=== PATIENT | male | born 1985 | race Caucasian/White ===

== ENCOUNTER → 2016-04-15 | Outpatient (CLI) | payer OTHER, MEDICAID ==
--- NOTE | 2016-04-15 14:44 | US ---
Scrotal Ultrasound History: Left-sided lump for years. Reported history of left testicular cyst. Comparison: None available. Findings: Right: The right testicle has homogeneous echotexture with no discrete masses, measuring 3.9 x 3.1 x 2.0 cm. Normal arterial blood flow is present in the testicle. A simple 5 mm epididymal head cyst is noted. There is no hydrocele or varicocele. Left: The left testicle has homogeneous echotexture with no discrete masses, measuring 2.2 x 1.8 x 3. 4 cm. Normal arterial blood flow is present in the testicle. The left epididymis has normal echotext ure. There is no hydrocele or varicocele. Blood flow is symmetric, with no evidence of hyperemia. Impression: Simple 5 mm right epididymal head cyst. Otherwise normal scrotal ultrasound.
== END ==
LOC: BRMIMAGING 13:47
PROVIDERS: ATTEND Physician Assistant
DX: N50.3 Cyst of epididymis (principal)
CPT/HCPCS: 76870-PO

== ENCOUNTER 2018-06-13 21:25 | Emergency (ER) | payer OTHER, MEDICAID ==
--- NOTE | 2018-06-13 21:50 | EDPHY ---
H & P Stated Complaint: HEARING VOICES, PARANOID Time Seen by Provider: 06/13/18 21:45 HPI/ROS: HPI CHIEF COMPLAINT: Paranoid, auditory hallucination HISTORY OF PRESENT ILLNESS: Patient is a 32-year-old male, he has a history of schizophrenia, he was recently released from custodial, presents to the emergency room stating he is having increasing paranoia denies any SI or HI denies visual hallucination but is having auditory hallucinations. States been off his medications for approximately 3 days. He typically takes Zyprexa and is requesting this. Past Medical History: Schizophrenia. Past Surgical History: Denies significant surgical history Social History: Methamphetamine use. Homeless. Polysubstance abuse. Family History: Noncontributory ROS REVIEW OF SYSTEMS: 10 Systems were reviewed and negative with the exception of the elements mentioned in the history of present illness. Exam Constitutional triage nursing summary reviewed, vital signs reviewed, awake/ alert. Eyes normal conjunctivae and sclera, EOMI, PERRLA. HENT normal inspection, atraumatic, moist mucus membranes, no epistaxis, neck supple/ no meningismus, no raccoon eyes. Respiratory clear to auscultation bilaterally, normal breath sounds, no respiratory distress, no wheezing. Cardiovascular rate normal, regular rhythm, no murmur, no edema, distal pulses normal. Gastrointestinal soft, non-tender, no rebound, no guarding, normal bowel sounds, no distension, no pulsatile mass. Genitourinary no CVA tenderness. Musculoskeletal no midline vertebral tenderness, full range of motion, no calf swelling, no tenderness of extremities, no meningismus, good pulses, neurovascularly intact. Skin pink, warm, & dry, no rash, skin atraumatic. Neurologic awake, alert and oriented x 3, AAOx3, moves all 4 extremities equally, motor intact, sensory intact, CN II-XII intact, normal cerebellar, normal vision, normal speech. Psychiatric auditory hallucinations, paranoia. Denies SI or HI. Heme/Lymph/Immune no lymphadenopathy. Differential Diagnosis: Includes but is not limited to in a particular order underlying schizophrenia, off medications, methamphetamine abuse. Medical Decision Making: Plan for this patient 10 mg p. O. Zyprexa, basic blood draw and re-evaluate. Re-evaluation: 0602: Patient re-evaluated this time is resting comfortably. He has no complaints. States he feels much better after tonight arrest he has been in the emergency room for overnight hours sleeping. He received 10 mg of Zyprexa last night and states his paranoia has greatly improved in fact he tells me does not feel paranoid at all. He reports to me no SI or HI denies auditory visual hallucinations. He is not gravely disabled. When I asked the patient what he needs done today he states that he needs to be discharged so that he can go to his psychiatric appointment at 8:00 a.m. This morning to get a refill on all his medications. Given that the patient is not psychotic, denies SI or HI denies want hurt himself and has a follow-up plan and care in place allowed to be discharged from the emergency room. Source: Patient - Personal History Current Tetanus Diphtheria and Acellular Pertussis (TDAP): Yes - Medical/Surgical History Hx Asthma: No Hx Chronic Respiratory Disease: No Hx Diabetes: No Hx Cardiac Disease: No Hx Renal Disease: No Hx Cirrhosis: No Hx Alcoholism: No Hx HIV/AIDS: No Hx Splenectomy or Spleen Trauma: No Other PMH: ADHD, anxiety, kidney stones, SCHIZO, DEPRESSION, ADHD - Social History Smoking Status: Current every day smoker Constitutional: Initial Vital Signs Temperature (C) 36.6 C 06/13/18 21:33 Heart Rate 108 H 06/13/18 21:33 Respiratory Rate 16 06/13/18 21:33 Blood Pressure 136/84 H 06/13/18 21:33 O2 Sat (%) 96 06/13/18 21:33 O2 Delivery Mode Room Air Allergies/Adverse Reactions: erythromycin base Allergy (Verified 09/12/14 23:11) Penicillins Allergy (Verified 09/12/14 23:11) Home Medications: Medication Instructions Recorded Abilify 06/13/18 Celexa 06/13/18 Strattera 06/13/18 Zyprexa 06/13/18 traZODone 06/13/18 Medical Decision Making - Data Points Laboratory Results: Laboratory Results 06/13/18 22:21 06/13/18 22:21 06/13/18 06/13/18 06/13/18 22:21 22:21 22:21 WBC 14.50 10^3/uL H 10^3/uL (3.80-9.50) RBC 4.82 10^6/uL 10^6/uL (4.40-6.38) Hgb 15.4 g/dL g/dL (13.7-17.5) Hct 44.7 % % (40.0-51.0) MCV 92.7 fL fL (81.5-99.8) MCH 32.0 pg pg (27.9-34.1) MCHC 34.5 g/dL g/dL (32.4-36.7) RDW 12.7 % % (11.5-15.2) Plt Count 284 10^3/uL 10^3/uL (150-400) MPV 9.9 fL fL (8.7-11.7) Neut % (Auto) 66.4 % % (39.3-74.2) Lymph % (Auto) 21.7 % % (15.0-45.0) [place] % (Auto) 9.9 % % (4.5-13.0) Eos % (Auto) 1.1 % % (0.6-7.6) Baso % (Auto) 0.6 % % (0.3-1.7) Nucleat RBC Rel Count 0.0 % % (0.0-0.2) Absolute Neuts (auto) 9.63 10^3/uL H 10^3/uL (1.70-6.50) Absolute Lymphs (auto) 3.14 10^3/uL H 10^3/uL (1.00-3.00) Absolute Monos (auto) 1.43 10^3/uL H 10^3/uL (0.30-0.80) Absolute Eos (auto) 0.16 10^3/uL 10^3/uL (0.03-0.40) Absolute Basos (auto) 0.09 10^3/uL 10^3/uL (0.02-0.10) Absolute Nucleated RBC 0.00 10^3/uL 10^3/uL (0-0.01) Immature Gran % 0.3 % % (0.0-1.1) Immature Gran # 0.05 10^3/uL 10^3/uL (0.00-0.10) Sodium 140 mEq/L mEq/L (135-145) Potassium 3.3 mEq/L L mEq/L (3.5-5.2) Chloride 107 mEq/L mEq/L (97-110) Carbon Dioxide 24 mEq/l mEq/l (22-31) Anion Gap 9 mEq/L mEq/L (6-14) BUN 11 mg/dL mg/dL (7-23) Creatinine 0.7 mg/dL mg/dL (0.7-1.3) Estimated GFR > 60 Glucose 102 mg/dL H mg/dL (70-100) Calcium 10.0 mg/dL mg/dL (8.5-10.4) Salicylates < 1.0 mg/dL L mg/dL (2.0-20.0) Urine Opiates Screen NEGATIVE (NEGATIVE) Acetaminophen < 10 mcg/mL L mcg/mL (10-30) Urine Barbiturates NEGATIVE (NEGATIVE) Ur Phencyclidine Scrn NEGATIVE (NEGATIVE) Ur Amphetamine Screen NEGATIVE (NEGATIVE) U Benzodiazepines Scrn NEGATIVE (NEGATIVE) Urine Cocaine Screen NEGATIVE (NEGATIVE) U Marijuana (THC) Screen NON-NEGATIVE H (NEGATIVE) Ethyl Alcohol < 10 mg/dL mg/dL (0-10) Medications Given: Discontinued Medications Olanzapine (Olanzapine) 10 mg PO ONCE ONE Stop: 06/13/18 21:57 Last Admin: 06/13/18 22:10 Dose: 10 mg Departure - Departure Disposition: Home, Routine, Self-Care Clinical Impression: Paranoid delusion Condition: Good Instructions: Schizophrenia (ED) Additional Instructions: 1. return to the er if worsening symptoms, this includes, paranoia, or wanting to hurt your self or anyone else. 2. Follow up with your doctor today 3. return if questions/concerns. Referrals: NONE *PRIMARY CARE P,. [Primary Care Provider] - As per Instructions [facility] [[facility]inic] - As per Instructions
[2018-06-13] MEDS ORDERED: OLANZapine 5 MG TAB PO ONE (21:56)
[2018-06-13 22:31] LABS: PLATELET COUNT 284 10^3/uL (150-400)
[2018-06-14 06:02] VITALS: BP 139/66
== END 2018-06-14 06:05 | disposition home or self-care (01) ==
DX: R44.0 Auditory hallucinations (principal); Z59.0 Homelessness
CPT/HCPCS: 80305; G0480

== ENCOUNTER 2018-06-30 02:56 | Inpatient (IN) | payer OTHER ==
[2018-06-30] MEDS ORDERED: OLANZapine DISINTEGR 5 MG TAB PO ONE (03:20)
--- NOTE | 2018-06-30 03:20 | EDPHY ---
H & P Stated Complaint: paranoid - Personal History Current Tetanus/Diphtheria Vaccine: Yes Current Tetanus Diphtheria and Acellular Pertussis (TDAP): Yes - Medical/Surgical History Hx Asthma: No Hx Chronic Respiratory Disease: No Hx Diabetes: No Hx Cardiac Disease: No Hx Renal Disease: No Hx Cirrhosis: No Hx Alcoholism: No Hx HIV/AIDS: No Hx Splenectomy or Spleen Trauma: No Other PMH: ADHD, anxiety, kidney stones, SCHIZO, DEPRESSION, ADHD, dental surgery - Social History Smoking Status: Current every day smoker Time Seen by Provider: 06/30/18 03:04 HPI/ROS: Chief Complaint: Thinks people are following him HPI: 33-year-old male with a history of schizophrenia is presenting emergency department this morning complaining that people are out to get him inching him. Patient's he has not been compliant with his to Abilify, Strattera, or Zyprexa. He was seen here on the and was discharged with follow up with [facility]. Patient's he did get his prescription filled but the last time he took them he felt sick and vomited so he has not been taking his medications. He believes a poor chasing him. Denies any falls or head injuries. Does any other substances. Being suicidal or homicidal at this time. ROS: 10 systems were reviewed and were negative except those elements noted in the HPI. PMH: Schizophrenia Social History: No smoking, no alcohol, no recreational drug use Family History: non-contributory Physical Exam: Gen: Awake, Alert, disheveled, noticed HEENT: Nose: no rhinorrhea Eyes: PERRLA, EOMI Mouth: Moist mucosa Neck: Supple, no JVD Chest: nontender, lungs clear to auscultation Heart: S1, S2 normal, no murmur Abd: Soft, non-tender, no guarding Back: no CVA tenderness, no midline tenderness Ext: no edema, non-tender Skin: no rash Neuro: CN II-XII intact, Sensation grossly intact, Strength 5/5 in bilateral upper and lower extremities (Fransico Mauricio) Constitutional: Initial Vital Signs Temperature (C) 36.7 C 06/30/18 02:59 Heart Rate 97 06/30/18 02:59 Respiratory Rate 18 06/30/18 02:59 Blood Pressure 145/94 H 06/30/18 02:59 O2 Sat (%) 94 06/30/18 02:59 O2 Delivery Mode Room Air Allergies/Adverse Reactions: erythromycin base Allergy (Verified 06/30/18 03:03) Penicillins Allergy (Verified 06/30/18 03:03) Home Medications: Medication Instructions Recorded Abilify 06/13/18 Celexa 06/13/18 Strattera 06/13/18 Zyprexa 06/13/18 traZODone 06/13/18 Medical Decision Making ED Course/Re-evaluation: 33-year-old male who is paranoid, history schizophrenia. Will treat with Zyprexa. He has been placed on [facility] H hold. He is not suicidal or a danger to others at this time. Will need mental health evaluation morning. He is medically cleared. 0700 patient signed out to Dr. Izquierdo pending mental health evaluation. (Fransico Mauricio) Care was signed out to me at 7:00 a.m.. I saw the patient at 7:10 a.m.. He stable. Sleeping. Awaiting mental health evaluation. Patient has been evaluated and felt most appropriate for inpatient shunt management treatment. He has been accepted at [facility] inpatient psych. (Jose Alfredo Izquierdo) - Data Points Laboratory Results: Laboratory Results 06/30/18 03:20 06/30/18 03:20 06/30/18 06/30/18 06/30/18 03:20 03:20 03:09 WBC 13.57 10^3/uL H 10^3/uL (3.80-9.50) RBC 4.83 10^6/uL 10^6/uL (4.40-6.38) Hgb 15.3 g/dL g/dL (13.7-17.5) Hct 45.2 % % (40.0-51.0) MCV 93.6 fL fL (81.5-99.8) MCH 31.7 pg pg (27.9-34.1) MCHC 33.8 g/dL g/dL (32.4-36.7) RDW 12.7 % % (11.5-15.2) Plt Count 330 10^3/uL 10^3/uL (150-400) MPV 9.6 fL fL (8.7-11.7) Neut % (Auto) 71.2 % % (39.3-74.2) Lymph % (Auto) 15.5 % % (15.0-45.0) [place] % (Auto) 11.0 % % (4.5-13.0) Eos % (Auto) 1.3 % % (0.6-7.6) Baso % (Auto) 0.7 % % (0.3-1.7) Nucleat RBC Rel Count 0.0 % % (0.0-0.2) Absolute Neuts (auto) 9.65 10^3/uL H 10^3/uL (1.70-6.50) Absolute Lymphs (auto) 2.11 10^3/uL 10^3/uL (1.00-3.00) Absolute Monos (auto) 1.49 10^3/uL H 10^3/uL (0.30-0.80) Absolute Eos (auto) 0.18 10^3/uL 10^3/uL (0.03-0.40) Absolute Basos (auto) 0.10 10^3/uL 10^3/uL (0.02-0.10) Absolute Nucleated RBC 0.00 10^3/uL 10^3/uL (0-0.01) Immature Gran % 0.3 % % (0.0-1.1) Immature Gran # 0.04 10^3/uL 10^3/uL (0.00-0.10) Sodium 139 mEq/L mEq/L (135-145) Potassium 4.0 mEq/L mEq/L (3.5-5.2) Chloride 108 mEq/L mEq/L (97-110) Carbon Dioxide 21 mEq/l L mEq/l (22-31) Anion Gap 10 mEq/L mEq/L (6-14) BUN 10 mg/dL mg/dL (7-23) Creatinine 0.7 mg/dL mg/dL (0.7-1.3) Estimated GFR > 60 Glucose 111 mg/dL H mg/dL (70-100) Calcium 10.1 mg/dL mg/dL (8.5-10.4) Urine Opiates Screen NEGATIVE (NEGATIVE) Urine Barbiturates NEGATIVE (NEGATIVE) Ur Phencyclidine Scrn NEGATIVE (NEGATIVE) Ur Amphetamine Screen NEGATIVE (NEGATIVE) U Benzodiazepines Scrn NEGATIVE (NEGATIVE) Urine Cocaine Screen NEGATIVE (NEGATIVE) U Marijuana (THC) Screen NON-NEGATIVE H (NEGATIVE) Ethyl Alcohol < 10 mg/dL mg/dL (0-10) Medications Given: Discontinued Medications Olanzapine (Zyprexa Zydis) 5 mg PO EDNOW ONE Stop: 06/30/18 03:21 Last Admin: 06/30/18 03:27 Dose: 5 mg Departure - Departure Disposition: [facility] IP Clinical Impression: Suicidal ideation Condition: Fair Referrals: Dario Hartmann MD [Primary Care Provider] - As per Instructions
[2018-06-30 03:29] LABS: PLATELET COUNT 330 10^3/uL (150-400)
--- NOTE | 2018-06-30 11:36 | ASMTTCLDSP ---
TLC Discharge Disposition Disposition: Answers: Admit Disposition Notes: Notes: Schizophrenia 295.90 (F20) In consultation with [facility] ED physician, Rudy Ace MD and on-call records management director, LEE Tom both concurred that pt appears to meet 27-65 criteria requiring psychiatric hospitalization as pt appears to be at risk of harm to self due to a mental illness condition. Pt was read the Patient Rights and Responsibilities Statement on 06/29/18 at 11:30 original placed on chart, and was given photocopy of Rights. Pt signed the Patient Rights. prohibited belongings list while in the ED. Was patient given the Answers: Yes Inpatient Behavioral Health Prohibited Belongings List while in the ED? For inpatient LEE Tom admission, the following psychiatrist agreed to accept patient for admission to Behavioral Health ([facility]): Type of Hold: Answers: M1/72-hour Hold Hold initiated by: Answers: Psychiatrist Date Signed: 06/30/2018 11:35 AM Electronically Signed By:Aaron Campos
--- NOTE | 2018-06-30 11:37 | ASMTTLCEVL ---
TLC Evaluation - Basic Information Evaluation Start Date and 06/30/2018 08:00 AM Time Hospital Status Answers: M1 Hold 72-hr M1 Hold Start Date 06/30/2018 11:25 AM and Time Patient statement Notes: "People have been trying to attack me on the street, this people on skateboards were following me and I ended up coming here" Narrative Notes: PT is a 33 YO caucasiaon male, homeless, with a history of schizophrenia is presenting emergency voluntarily complaining that people are out to get him and following him. "Per ED report the Patient's has not been compliant with his to Abilify, Strattera, or Zyprexa. He was seen here on the June 14 and was discharged with follow up with [facility]. Patient's he did get his prescription filled but the last time he took them he felt sick and vomited so he has not been taking his medications. He believes people are chasing him. U-Tox positive for THC only. " Diagnosis History Notes: Schizophrenia 295.90 (F20) Prior suicide attempts Notes: Pt reportes 6 sucide attempts via hanging, pills/OD and placing a bag over his head. Prior hospitalizations Notes: Pt reports he was hospitalized at [facility] at 22yo and at [facility] 3-4 years ago Treatment Responses Notes: Pt reported hospitalization was kind of helpful. History of violence Notes: PT deneis any hx of violence but does report he has bene charged with manacing. Therapist: None Psychiatrist: Dr. Harmtann at [facility] Medications (name, dosage, route, freq uency) Notes: PER [facility] THE PT's Home Medications Are: Medication Instructions Recorded Abilify 15mg PO AM 06/30/18 Effexor XR 75 MG CP 24 PO AM 06/30/18 Effexor XT 150 MG CP 24 PO AM 06/30/18 Strattera 100mg cap PO 1 HS 06/30/18 Trazadone 50mg tab PO 1 PRN-HS 06/30/18 Allergies/Reaction Notes: Allergies/Adverse Reactions: erythromycin base Allergy (Verified 06/30/18 03:03) Penicillins Allergy (Verified 06/30/18 03:03) Sleep Notes: Pt reports his sleep is poor Appetite Notes: Pt reports his apptetite is poor Medical/Surgical history Notes: No medical concerns or previous surgical hx reported Substance use history (frequency, intensity, his tory, duration) Notes: PT's utox was positive for THC. Pt reported he started THC at 12yo. PT reproted he first used meth at 22 or 23 years old. Family composition Notes: Pt reports he has a sister he is not close to, his father is , and his mother lives in [place]. PT is estranged from family Need for family Answers: Yes participation in patient's care Family psychiatric/substance abuse history Notes: Pt reporte dhis father was an alcoholic and , pt reported his mother has schizophrenia. Developmental history Notes: Pt reported ADHD, a concussion at 9YO, pt denied any emotional physical or sexual abuse. Abuse concerns Answers: None Marital status/children Notes: Unmarried 2 children 7 and 8 YO estranged, living with mother [place] out of state Living situation Notes: Homeless Sexual history/orientation Notes: Heterosexual not active Peer support/family strengths Notes: Pt reportes he doest have friends or support Education level/history Notes: PT reports he has a GED Work history Notes: PT reports he doesn't work and is on SSDI Notes: None Reported Legal Notes: "I'm on pretrial protocols out on a [place]" Per [facility] records pt has been in and out of [facility] 01/26/2014 06/24/14 and was recently released from [facility] shortly before May Nondenominational/Spiritual Notes: PT does not identify any adventism practices that would interfere with treatment Leisure Notes: "I don't know, smoke pot?" Collateral Notes: Collateral data obtained from previous ED report and [facility] for meds and providers Patient's strengths Answers: Motivated for Treatment (Please select at least TWO strengths): Willingness TLC Evaluation - Mental Status Exam Appearance: Answers: Appropriate Unclean Unkempt Eye Contact: Answers: Avoiding Mood: Answers: Depressed Affect: Answers: Appropriate Calm Expansive Suspicious Behavior: Answers: Cooperative Impulsive Sleeping Speech: Answers: Relevant Logical Clear Coherent Flight of Ideas Rambling Thought Process: Answers: Disorganized Oriented Alert Circumstantial Flight of Ideas Paranoid Racing Thoughts Insight: Answers: Poor Judgement: Answers: Poor Manic Signs/Symptoms Answers: Distractibility Impulsivity Racing Thoughts Depression Answers: Hopelessness Signs/Symptoms: Anxiety Signs/Symptoms Answers: Generalized Anxiety Delusions: Answers: Ideas of Reference Paranoid Ideation Current Stage of Change Answers: Precontemplation Pt reported to have Answers: Yes suicidal/self-injuring ideation/behavior? Pt reported to be making Answers: No suicidal/self-injuring threats? Pt reported to have Answers: No aggression/assault ideation/behavior? Pt reported to be making Answers: No aggression/assault threats? Pt exhibits inability to Answers: Yes care for self/grave disability? Ideation/behavior is Answers: Yes chronic? Patient has a specific Answers: No plan? Pt has access to means to Answers: No execute the plan? Ideation involves Answers: No serious/lethal intent? Ideation has Answers: Yes delusional/hallucinatory content? History of Answers: Yes suicidal/self-injuring ideation, behavior, or threats? History of Answers: Yes aggressive/assaultive ideation, behavior, or threats? History of serious Answers: No physical harm to self/others while in treatment setting? TLC Evaluation - Suicide/Homicide Risk Suicide Risk Factors: Answers: Financial Difficulties Flat Affect Hopelessness Impulsivity Inadequate Social Support Lack of Social Support Lack/Loss of Employment Legal Difficulties Prior Suicide Attempt(s) Psychotic Disorder Schizoaffective Disorder Schizophrenia Single Unstable Living Situation Homicide/violence risk Answers: Paranoid Ideation factors: Threats Towards Others Current Suicidal Answers: No Ideation? Current Suicidal Ideation Answers: No in the Past 48 Hours? Current Suicidal Ideation Answers: Yes in the Past Month? Suicide Internal Answers: Frustration Tolerance Protective Factors: Alexander with Stress Suicide External Answers: Positive Therapeutic Protective Factors: Relationships Ranking of patient's Answers: Moderate suicidal risk: Ranking of patient's Answers: Low homicidal risk: TLC Evaluation - Wrap-up AXIS I Diagnosis (include DSM-V and ICD-10 codes), must also be entered in [employer], which is the source of truth. Notes: Schizophrenia 295.90 (F20) In consultation with [facility] ED physician, Rudy Ace MD and on-call enchilada maker, LEE Tom both concurred that pt appears to meet 27-65 criteria requiring psychiatric hospitalization as pt appears to be at risk of harm to self due to a mental illness condition. Pt was read the Patient Rights and Responsibilities Statement on 06/29/18 at 11:30 original placed on chart, and was given photocopy of Rights. Pt signed the Patient Rights. prohibited belongings list while in the ED. Evaluation End Date and 06/30/2018 11:00 AM Time (HH:MM): Date Signed: 06/30/2018 11:36 AM Electronically Signed By:Aaron Campos
--- NOTE | 2018-06-30 12:26 | PDCONSULT ---
[facility] Note: INTERNAL MEDICINE CONSULT NOTE DATE OF CONSULTATION: 06/30/2018 REASON FOR CONSULTATION: medical clearance for inpatient behavioral health stay HISTORY OF PRESENT ILLNESS: Mr Craig is a 33yo M with history of schizophrenia presents with hallucinations. He has not followed up with his mental health provider or been taking his psychiatric medications for at least a few weeks. He reports that people are chasing him. He denies suicidal or homicidal ideation. His left jaw has been swollen and painful. He had some dental work done (a crown placed?) on left lower tooth about 1.5 weeks ago but hasn't been able to follow up with his dentist. No recent fevers, chills, chest pain, dyspnea, abdominal pain, n/v/d, rashes. PAST MEDICAL HISTORY: schizophrenia, nephrolithiasis, anxiety, ADHD PAST SURGICAL HISTORY: wisdom tooth removal MEDICATIONS: see medication reconciliation ALLERGIES: penicillin (unknown allergy) SOCIAL HISTORY: denies etoh, vapes tobacco, smokes marijuana but denies other illicits FAMILY HISTORY: non-contributory REVIEW OF SYSTEMS: 10 point review was negative except per HPI. VITALS: Reviewed. Afebrile. He is mildly tachycardic and hypertensive with HR in the 90s and BP 140/90s. PHYSICAL EXAM: No acute distress, unkempt. Appears stated age. Anicteric sclera , eomi, perrl. No thyromegaly. Mild erythema of gingiva surrounding tooth in left lower jaw; fullness in left cervical neck consistent with adenopathy. RRR, no murmurs. Lungs clear bilaterally. Abdomen soft and nontender. No rashes. No leg edema or JVD. CN 2-12 intact, moving all extremities. Appropriate. LABORATORY STUDIES: Reviewed. WBC 13k otherwise normal CBC. Normal BMP. Utox + for marijuana but otherwise negative. Serum ethyl alcohol negative. ASSESSMENT/PLAN: 1. Decompensated schizophrenia: Management per inpatient psychiatric team. 2. Concern for mild odontogenic infection: Will start on clindamycin 450mg q8h x10 days (he has penicillin allergy so will avoid augmentin). He will need to follow up with his dentist shortly after completing course of antibiotics. 3. Leukocytosis: Likely related to above infection. He is otherwise not septic or toxic appearing. 4. History of nephrolithiasis: No symptoms of this currently. 5. Tobacco use I see no medical contraindications for Mr Dewitt's continued stay in the inpatient behavioral health unit. Thank you for this consult. Please do not hesitate to contact the internal medicine/hospitalist team if there should be further need for medical evaluation.
[2018-06-30] MEDS ORDERED: CLINDAMYCIN 150 MG CAP ONE (14:01)
[2018-06-30] MEDS: CLINDAMYCIN 150 MG CAP PO SCH ×2 (14:03→21:20)
[2018-06-30] MEDS ORDERED: MAGNESIUM HYDROXIDE 30 ML UDCUP PO PRN (16:07)
[2018-06-30] MEDS ORDERED: NICOTINE POLACRILEX 2 MG GUM B PRN (16:07)
[2018-06-30] MEDS ORDERED: ACETAMINOPHEN 325 MG TAB PO PRN (16:07)
[2018-06-30] MEDS ORDERED: OLANZapine DISINTEGR 10 MG TAB PO PRN (16:07)
[2018-06-30] MEDS ORDERED: LORazepam 0.5 MG TAB PO PRN (16:07)
[2018-06-30] MEDS ORDERED: MAG HYDROX/AL HYDROX/SIMETH 30 ML UDCUP PO PRN (16:07)
[2018-06-30] MEDS: IBUPROFEN 200 MG TAB PO PRN (17:23)
[2018-07-01] MEDS: IBUPROFEN 200 MG TAB PO PRN (08:37)
[2018-07-01] MEDS: CLINDAMYCIN 150 MG CAP PO SCH ×3 (08:38→20:20)
[2018-07-01] MEDS ORDERED: PALIPERIDONE 3 MG TAB.ER PO SCH (09:00)
--- NOTE | 2018-07-01 09:27 | ASMTBHMTP ---
Master Treatment Plan Master Treatment Plan Answers: Mood Instability with for: Psychosis Date: 07/01/2018 Diagnosis on Admission: Schizophrenia 295.90 (F20) Expected length of stay: 5-7 Reason for admission: Notes: PT is a 33 YO caucasiaon male, homeless, with a history of schizophrenia is presenting emergency voluntarily complaining that people are out to get him and following him. "Per ED report the Patient's has not been compliant with his to Abilify, Strattera, or Zyprexa. He was seen here on the June 14 and was discharged [facility]. Patient's he did get his prescription filled but the last time he took them he felt sick and vomited so he has not been taking his medications. He believes people are chasing him. U-Tox positive for THC only. " Patient's stated presenting problems: Notes: "People are following me talking about me, trying to jennifer me even in the parking lot of the hospital. Even the manager game are following me. Patient's goals for treatment: Notes: "My tooth. I like to get my regular medications instead of the medications the doctor wants to give me". Patient's strengths: Notes: "I don't know". Identify supports outside of hospital: Notes: "I have no support. My mom put a restraining order against me because I was smoking Meth". Discharge criteria: Notes: Participate in unit activities. Maintain good hygiene. Master Treatment Plan Required Signatures Psychiatrist signature: Answers: Psychiatrist: RN on-shift signature: Answers: RN: Patient signature: Answers: Patient: Date Signed: 07/01/2018 09:26 AM Electronically Signed By:Priscilla Perez
--- NOTE | 2018-07-01 11:58 | ASMTCMCOM ---
CM Note CM Note Notes: CC met with ct. to develop MTP. Ct. presented as paranoid and agitated. Hygiene is marginal Ct. is isolative and stays in his room. He said that he has a tooth ache and is in pain. He reported that he is being seen at [facility] and that his MD is Dr. Hartmann. However, he refused to sign a JOSE for [facility] saying that they are following him. Date Signed: 07/01/2018 11:57 AM Electronically Signed By:Priscilla Perez
[2018-07-01] MEDS: HYDROCODONE/APAP 5/325 TAB PO PRN ×2 (12:30→16:35)
[2018-07-01] MEDS: VENLAFAXINE XR 150 MG CAP PO SCH (12:30)
--- NOTE | 2018-07-01 15:22 | SOAPPROG ---
SOAP Progress Note Assessment/Plan: Assessment: Plan: 07/01/18 15:21 Psychosis/mood: Appears paranoid, irritable, hostile. Will restart meds and monitor. Will attempt to complete full evaluation tomorrow. Subjective: Pt seen twice today, chart reviewed. He was seen earlier by Shane Sue NP also. He refuses to provide interview stating he is tired and his tooth hurts. I agreed to restart some of his meds including: Effexor and Zyprexa. Will hold Strattera and Abilify for now due to concern for redundancy and/or conflict. Will continue abx per IM rec. Will add hydrocodone for pain. Objective: Vital Signs Temp Pulse Resp BP Pulse Ox 37.3 C 108 H 24 H 138/77 H 93 07/01/18 06:00 07/01/18 06:00 07/01/18 06:00 07/01/18 06:00 07/01/18 06:00 - Time Spent With Patient Time Spent With Patient: 25" ICD10 Worksheet Patient Problems: Problems Problem Status Onset Suicidal ideation Acute
[2018-07-01] MEDS: PNEUMOCOCCAL 0.5ML VACCINE VIAL (PNEUMOVAX 23) IM ONE ×2 (16:40→16:50)
[2018-07-01] MEDS: OLANZapine DISINTEGR 10 MG TAB PO SCH (20:21)
[2018-07-02] MEDS: HYDROCODONE/APAP 5/325 TAB PO PRN ×4 (08:46→20:47)
[2018-07-02] MEDS: VENLAFAXINE XR 150 MG CAP PO SCH (08:47)
[2018-07-02] MEDS: CLINDAMYCIN 150 MG CAP PO SCH ×3 (08:48→20:46)
--- NOTE | 2018-07-02 12:54 | ASMTCMCOM ---
CM Note CM Note Notes: The patient reported a "tooth infection" causing "excrutiating" pain; nursing notified. He continues to refuse to sign documents or participate in treatment due to paranoid ideation. With regard to an JOSE for his outpatient team at [facility], the patient stated, "They have people follow me." The patient denied having peer support reporting that he had disconnected with many friends due to their substance abuse. With regard to his support system the patient stated, "Their all gone. I don't know where." Date Signed: 07/02/2018 12:54 PM Electronically Signed By:Maria M Ashby
--- NOTE | 2018-07-02 16:17 | BAPA ---
[f rep st] ADMISSION PSYCHIATRIC ASSESSMENT DATE OF SERVICE: 07/01/2018 DATES OF EVALUATION: 07/01/2018 and 07/02/2018. REASON FOR ADMISSION: Patient is a 33-year-old male with a history of depression and possibly schizophrenia. He presented of his own accord to the emergency department reporting suicidality stating that people were out to get him. He stated that he had been on medications but had been off them because he sick and vomited. He is followed by [facility] and states that he saw Dr. Hartmann about 2 weeks ago. He then also presented to our emergency department on June 14 and stated that he was paranoid also at that time. I attempted to interview the patient on 07/01/2018, and saw him 3 times on that day. Each time he was irritable, hostile, paranoid, and refused interview. He was mainly concerned about a tooth abscess that was very painful, and he stated that this caused him not to be able to talk with me. When I returned today, the patient was much more cooperative. He still complained of a tooth abscess, which is legitimate, though he was able to give some history. He states that people have been following him in [place], and then [place], and now in [place]. When I ask who these people are, he states that he knows them but does not know who they are. He states that the police are part of it as well. He states that he is unsafe and does not know why others intend him harm. He states this has been going on for quite a long time and that this has caused him to move around a lot. He is homeless and states he has no supports of any kind. Collateral information indicates that he grew up in the [facility] and his mother still lives there but has a restraining order against him. He states that he has no supports of any kind and his family is . He reports having 6 previous suicide attempts, mainly through overdose or hanging, and states he placed a bag over his head on one occasion. He states also that he has been hospitalized numerous times including at [facility] and [facility], though he is unable to give a specific timeline. He currently is followed by [facility] and Dr. Hartmann. PAST PSYCHIATRIC HISTORY: Largely as above. ALLERGIES: Erythromycin and penicillin. CURRENT MEDICATIONS: Include Abilify 10 mg at h.s., Strattera 100 mg daily, ibuprofen 200 mg daily, multivitamin 1 daily, Zyprexa 10 mg h.s., and Effexor XR 150 mg daily. It is of note that there are 4 different lists of medications that are similar but different. The patient states that he was not taking Abilify recently but that he was taking Zyprexa and Strattera. He also states that he would like to take the Effexor as he believes this has helped him in the past. PAST MEDICAL HISTORY: Significant for this history of some dental problems recently. He states that he got a filling 2 weeks ago and that he had this swelling in his tooth at the time. He states that they told him them that if it did not get better that he might have to have it pulled. He states that this is much worse over the last 3-4 days. He denies any other medical issues. SOCIAL HISTORY: Patient states he was born and raised in the [facility]. He currently receives social security disability income for mental illness. He has a payee at [employer]. He reports having no supports and no available family. He states that his father was an alcoholic and when he was young. He states his mother has been diagnosed with schizophrenia. He is unmarried, though he states he has 2 children, ages 7 and 8, that he has no contact with, and the mother apparently moved them out of state. He describes significant legal problems in the past, stating that he has been in retirement and group home, though is not specific about why or when, and he is currently out on a [place] martinez due to possession of methamphetamine. SUBSTANCE ABUSE HISTORY: The patient states that he primarily smokes marijuana and is guarded about his possible methamphetamine use. ADMISSION LABORATORY: CBC shows a white count up at 13.57. Serum chemistries are essentially normal. Liver function is normal. Lipid profile is normal. Urine drug screen is positive for marijuana. MENTAL STATUS EXAMINATION: Reveals an unkempt male lying in a hospital bed wearing hospital garb. He is holding a cold pack to his cheek, which is notably swollen. He is quite hostile and guarded, paranoid, but today is at least willing to participate in an interview. His affect is constricted, irritable. His mood is "terrible." His thought process is generally linear and goal directed. His thought content reveals a general sense of paranoia, believing that others are following him and there is a plot against him. He denies any auditory, visual, or tactile hallucinations. He is alert and oriented to person, place, time, and situation, and his sensorium is clear. There is no evidence of delirium, withdrawal, or intoxication. His intellect appears to be average to low average as evidenced by his educational and occupational histories, his fund of knowledge and vocabulary. He endorses some thoughts of suicide and also homicide toward unseen persons who are persecuting him. He has no specific plans for this. His insight and judgment appear to be marginal. IMPRESSION: Schizophrenia versus schizoaffective disorder, depressed type. PLAN: 1. [facility]. 2. We will restart Zyprexa, Effexor, and provide p.r.n. lorazepam. We will also continue clindamycin for his abscess and ibuprofen and hydrocodone for pain. 3. We will monitor his mood and psychotic symptoms with reinstitution of treatment. 4. Anticipated length of stay is 5-7 days. /[id number]/MODL and [id number]/MODL [facility]
[2018-07-02] MEDS: IBUPROFEN 200 MG TAB PO PRN (16:58)
--- NOTE | 2018-07-02 17:47 | BAPA ---
[f rep st] ADMISSION PSYCHIATRIC ASSESSMENT CONTINUATION: PLAN: 1. [facility] hold. 2. We will restart Zyprexa, Effexor, and provide p.r.n. lorazepam. We will also continue clindamycin for his abscess and ibuprofen and hydrocodone for pain. 3. We will monitor his mood and psychotic symptoms with reinstitution of treatment. 4. Anticipated length of stay is 5-7 days. c/p [facility] #[id number] /[id number]/MODL
[2018-07-02] MEDS: OLANZapine DISINTEGR 10 MG TAB PO SCH (20:48)
[2018-07-03] MEDS: VENLAFAXINE XR 150 MG CAP PO SCH (08:26)
[2018-07-03] MEDS: HYDROCODONE/APAP 5/325 TAB PO PRN ×2 (08:26→15:53)
[2018-07-03] MEDS: CLINDAMYCIN 150 MG CAP PO SCH ×3 (08:26→19:19)
[2018-07-03] MEDS: IBUPROFEN 200 MG TAB PO PRN ×3 (08:26→19:19)
--- NOTE | 2018-07-03 17:40 | SOAPPROG ---
SOAP Progress Note Assessment/Plan: Assessment: 33 yo with h/o schizophrenia presented to ED on 07/01/18 c/o people chasing him and other paranoid delusions. He has not taken meds for a couple weeks b/c he believes his med are making him sick. Plan: 07/03/18 17:[address] Redmond saw patient on admission and restarted him on Zyprexa and Effexor , but held 2 other OP meds, Abilify and Strattera d/t concerns for polypharmacy and potential for Strattera to worsen sxs of psychosis. 2. Patient's main concern is tooth abcess. He is taking Clindamycin as well as [place] for pain. 3. CC has scheduled f/u appt with Dr. Hartmann and providers at [facility] on 07/15. 4. Will change legal status to voluntary when hold expires. Subjective: Patient has stayed in his room all day. He is complaining of tooth pain from abcess. He is taking PO Clindamycin as well as narcotic for pain. He is denying any SI/HI. He is less delusional and paranoid than at admission. However, patient is homeless and has not been compliant with treatment prior to coming to hospital. CC is trying to connect him with [facility] providers. Patient agreed to stay voluntarily through weekend, so treatment team could contact his [facility] providers and establish a f/u plan. Objective: Vital Signs Temp Pulse Resp BP Pulse Ox 36.8 C 117 H 20 129/81 H 94 07/03/18 06:00 07/03/18 06:00 07/03/18 06:00 07/03/18 06:00 07/03/18 06:00 MSE: Affect: Anxious d/t tooth pain Mood: "OK" TP: Linear TC: Denies SI/HI, less paranoid Insight/Judgment: Improving - Time Spent With Patient Time Spent With Patient: 15" - Pending Discharge Pending Discharge Within 24 Hours: No Pending Discharge Within 48 Hours: No ICD10 Worksheet Patient Problems: Problems Problem Status Onset Suicidal ideation Acute
[2018-07-03] MEDS: OLANZapine DISINTEGR 10 MG TAB PO SCH (19:18)
[2018-07-04] MEDS: CLINDAMYCIN 150 MG CAP PO SCH ×3 (08:19→21:25)
[2018-07-04] MEDS: HYDROCODONE/APAP 5/325 TAB PO PRN ×4 (08:20→21:27)
[2018-07-04] MEDS: IBUPROFEN 200 MG TAB PO PRN ×3 (08:20→19:57)
[2018-07-04] MEDS: VENLAFAXINE XR 150 MG CAP PO SCH (08:20)
--- NOTE | 2018-07-04 14:18 | ASMTCMCOM ---
CM Note CM Note Notes: CC and MD met with pt. Pt. reports he will discharge on Thursday. Pt. stated he is connected with [facility]. Pt. reports his dentist is [facility] in [place]. Pt. reports he slept "good". Pt. reports "not really" eating due to tooth pain, adding it is "hard to swallow". Pt. reports taking all of his medications, other than one he doesn't know what it's for. Pt. reports he has been resting in his room most of the day. Pt. reports being homeless, and not entirely sure where he plans to stay. Pt. reports not really wanting to stay in [place], adding he does get paid through [facility] though. Pt. requested to be able to shave, adding this will make him happy. Pt. denied SI, HI, and AVH. Pt. reports having "paranoia on the street" about being followed, adding not having paranoia while in the hospital. Pt. presents as alert, calm, good eye contact, polite, and cooperative. Staff report pt. sleeping 10 hours, being medication compliant, and withdrawn to his room. Pt. agreed to sign JOSE for [facility] to allow CC to schedule an appointment for his tooth abscess Pt. has an appointment with [facility] on 07/15/18 at 1400. Date Signed: 07/04/2018 02:18 PM Electronically Signed By:Suzan Ray
--- NOTE | 2018-07-04 17:06 | SOAPPROG ---
SOAP Progress Note Assessment/Plan: Assessment: 33 yo with h/o schizophrenia presented to ED on 07/01/18 c/o people chasing him and other paranoid delusions. He has not taken meds for a couple weeks b/c he believes his med are making him sick. Plan: 07/03/18 17:[address] Redmond saw patient on admission and restarted him on Zyprexa and Effexor , but held 2 other OP meds, Abilify and Strattera d/t concerns for polypharmacy and potential for Strattera to worsen sxs of psychosis. 2. Patient's main concern is tooth abcess. He is taking Clindamycin as well as [place] for pain. 3. has scheduled f/u appt with Dr. Hartmann and providers at [facility] on 07/15. 4. Will change legal status to voluntary when hold expires. 07/04/18 17:02 1. Patient reports tooth pain is "better." 2. Patient reportedly slept 10 hrs last night without any disturbance from his tooth pain. 3. Patient said he plans to go to [facility] after d/c to f/u for tooth abscess. 4. Patient has registration appt at [facility] on 07/13. CC will try to schedule an earlier appt if possible. 5. Patient would like to d/c tomorrow. Subjective: MD and CC met with patient. He was sitting on his bed wearing jeans and a T- shirt. Patient reported tooth pain, but did not present in any acute distress. He said he had been to [facility] clinic this week. They placed a filling in his tooth that has now developed an abscess. He said he plans to return there as soon as he is discharged. He denies any paranoid delusions. He denies any SI/ HI. Objective: Vital Signs Temp Pulse Resp BP Pulse Ox 36.7 C 96 20 132/67 H 93 07/04/18 06:00 07/04/18 06:00 07/04/18 06:00 07/04/18 06:00 07/04/18 06:00 MSE: Affect: Euthymic Mood: "OK" TP: Linear, goal-directed TC: Denies any SI/ HI, no paranoid delusions, no bizarre thoughts or IOR Perception: Denies any AH /VH Insight/Judgment: Fair - Time Spent With Patient Time Spent With Patient: 20" - Pending Discharge Pending Discharge Within 24 Hours: Yes Pending Discharge Date: 07/05/18 Pending Discharge Time: 11:00 ICD10 Worksheet Patient Problems: Problems Problem Status Onset Suicidal ideation Acute
[2018-07-04] MEDS: OLANZapine DISINTEGR 10 MG TAB PO SCH (19:57)
[2018-07-05 06:44] VITALS: BP 121/76
[2018-07-05] MEDS: CLINDAMYCIN 150 MG CAP PO SCH (07:44)
[2018-07-05] MEDS: VENLAFAXINE XR 150 MG CAP PO SCH (07:44)
[2018-07-05] MEDS: HYDROCODONE/APAP 5/325 TAB PO PRN (07:49)
--- NOTE | 2018-07-05 10:33 | BDS ---
[f rep st] BEHAVIORAL HEALTH DISCHARGE SUMMARY REASON FOR ADMISSION: From the ED note dated 06/30/2018, the patient with history of schizophrenia, presented to the emergency department complaining that people were out to get him. Reportedly, patient had not been adherent to prescribed medications. The patient was admitted involuntarily and on an M1 hold due to being gravely disabled due to a mental illness. Patient was admitted for safety, crisis stabilization, and medication management. ADMITTING DIAGNOSES: 1. Rule out schizophrenia. 2. Rule out schizoaffective disorder, depressed type. 3. Cannabis use disorder, moderate use. 4. Nonadherence to medical treatment. ADMISSION PHYSICAL EXAM: Patient was seen on 06/30/2018 for history and physical consultation for medical clearance for inpatient psychiatric hospitalization and treatment. The patient was medically cleared for inpatient psychiatric hospitalization and treatment. For further details, please refer to economics consultant note document dated 06/30/2018. ADMISSION LABS: 1. CBC within normal limits except white blood cells were elevated at 13.57, absolute neutrophils were elevated at 9.65, and absolute monocytes were elevated at 1.492. 2. BMP within normal limits except carbon dioxide was low at 21, glucose was elevated at 111. 3. Hemoglobin A1c within normal limits at 5.4. 4. Liver function within normal limits. 5. Lipid panel within normal limits except LDL cholesterol calculated was elevated at 126, non-HDL cholesterol was elevated at 144. 6. Toxicology screen was non-negative for THC, negative for all other substances screened. MAJOR PROCEDURES OR TESTS: None. HOSPITAL COURSE: The most prominent symptoms and behaviors while the patient was here were isolated from social interaction. At time of admission, patient was withdrawn to his room, avoided social interaction with other patients and staff. The patient's affect was constricted and flat. Patient presented depressed. The patient also reported paranoid delusions. Treatment modalities utilized were milieu and group therapy. Zyprexa Zydis 10 mg p.o. at bedtime was started to target mood and psychosis symptoms, was tolerated with no report of side effects and with good response. Effexor XR 150 mg p.o. daily was continued to target mood symptoms, was tolerated with no report of side effects and with good response. The patient also complained of tooth discomfort due to abscess, and Jackson 5/325 one tab p.o. q.4 hours p.r.n. was started to target pain, was tolerated with no report of side effects and with good response. Clindamycin 450 mg p.o. t.i.d. was started to target tooth infection related to tooth abscess, was tolerated with no report of side effects and with good response. The patient slept 10 hours last night and also slept on Thursday night without disturbance due to tooth pain and reported tooth pain as better. The patient plans to follow up at [facility] after discharge to follow up for tooth abscess. Patient has improved considerably with no signs of psychiatric symptoms and no psychiatric symptoms expressed. Patient reports he has improved since admission, states to be in stable condition, feels safe to discharge, and he contracts for safety. Patients response to treatment was good. There were no adverse or unexpected results of treatment. The patient was safe throughout stay, active in treatment, engaged in groups, and was appropriate with staff. Patient met with treatment team prior to discharge to assess readiness to discharge and review discharge plan. The treatment team consensus is the patient in stable condition, has a safe discharge plan, and is ready to discharge today. CONDITION AT DISCHARGE: Patient is in stable condition and is no longer a danger to self or others, and is not gravely disabled due to mental illness. Patient is no longer in need of inpatient level of care, and can be safely and effectively treated within the community. The patients level of risk at time of discharge is low. MSE: The patient is casually dressed and with good hygiene , and looks stated age. Patient is sitting, posture is upright, and position is relaxed. Patient appears awake, alert, and responds appropriately and reasonably during interview. Patient is engaged, relates well to interviewer, and emotional facial expression is appropriate to situation and changes appropriately with topic. Patient is cooperative, makes comfortable eye contact , and movements are voluntary, deliberate, coordinated, and smooth and even with no inappropriate movements. Patient makes laryngeal sounds effortlessly and shares conversation appropriately; pace of conversation is appropriate, and stream of talking is fluent; articulation is clear and understandable; word choice is effortless and appropriate for education level; completes sentences, occasionally pausing to think; rate and volume are appropriate for interview and setting. Patient reports mood as euthymic. Patients affect is stable with full variable range, congruent with mood, and appropriate to speech and circumstances. Patient has linear and logical thinking, with no loose associations, tangential thought, thought blocking, concrete thinking, or any other signs of formal thought disorder. Patient denies suicidal and homicidal ideation, and denies hallucinations and delusions. Patient appears to be a reliable historian with sound judgement and good insight into current condition. Patient has no apparent dysfunction in recent or remote memory noted , and no evidence of gross cognitive dysfunction noted at any point during the interview. DISCHARGE DIAGNOSES: 1. Schizoaffective disorder, depressive type. 2. Cannabis use disorder, moderate use. CURRENT MEDICATIONS: After reviewing options, risks, and benefits with the patient, patient agrees to continue: 1. Zyprexa 10 mg p.o. q.h.s. 2. Effexor XR 150 mg p.o. daily. DISPOSITION: Patient left the hospital independently and voluntarily and plans to stay in hotel after discharge. Patient plans to first attend dentist appointment today at 2pm in [place], [place]. FOLLOWUP: dispute coordinator reports the appropriate outpatient follow-up services have been established and outpatient appointments have been scheduled. The patient received written instructions with times and dates of outpatient follow-up appointments. The following follow-up recommendations were provided to the patient at discharge: Continue psychotropic medications as prescribed and attend appointments as scheduled. Report any side effects to a psychiatric outpatient provider, a primary care provider, or other health animal daycare provider. Address any questions or problems concerning the psychotropic medications with a psychiatric outpatient provider, a primary care provider, or other health animal daycare provider. Contact [facility] or [facility], or go to the nearest emergency room, if you are ever a danger to yourself/others, or unable to care for yourself. As soon as possible, establish a routine medication management treatment with a psychiatric provider, establish routine therapy appointments, and follow-up with a primary care provider. SUBSTANCE ABUSE BRIEF INTERVENTION: Brief intervention regarding the risks of cannabis abuse is provided to patient with goal to reduce the risk of harm that could result from the continued use of cannabis, with the general aim to investigate the problem, raise awareness of problem, develop a solution with the patient, recommend a specific change or activity, and motivate the patient toward change. Assess substance abuse behavior and give supportive advice about harm reduction, recommend a reduction in hazardous/at-risk consumption patterns, and facilitate referrals for additional specialized treatment with critical care technician. Intermediate goal is for the patient to quit and attend outpatient substance abuse treatment. Intervention focus on intermediate goals to allow for more immediate success in the treatment process to keep the patient motivated. Review following with patient: Cannabis use risks: Short- term use: impaired short-term memory, impaired motor coordination, altered judgement, in high doses paranoia and psychosis. Long-term use addiction, diminished life satisfaction and achievement, symptoms of chronic bronchitis, and increased risk of chronic psychosis disorders if predisposition to such disorders. In withdrawal anger, aggression irritability, anxiety and nervousness, decreased appetite or weight loss, restlessness, and sleep difficulties with strange dreams. OUTPATIENT SUBSTANCE ABUSE TREATMENT: Patient referred to outpatient provider and treatment for continued treatment related to substance abuse. LEGAL COURSE: Patient was admitted on an M1 hold for involuntary inpatient psychiatric hospitalization. The patient discharged today independently and voluntarily. ATTITUDE AT TIME OF DISCHARGE: The patients attitude was positive at time of discharge, and patient reports looking forward to discharging today. The patient reports he feels safe to discharge, is no longer a danger to himself or others, is in stable condition, and contracts for safety. Patient states he will continue medications as prescribed, and establish medication management treatment with an outpatient provider after discharge. Patient reports he understands the information that has been provided to him, and he understands, accepts, and agrees to psychotropic medications. Patient describes internal protective factors as the coping skills he has learned while hospitalized here, and he plans to continue to practice these coping skills after discharge. LABS AND RADIOLOGY STUDIES: There were no pending labs or studies at time of discharge. ADVANCE DIRECTIVES: There were no advance directives on file, and patient was full code during this hospitalization. The following psychotropic medication treatment informed consent and recommendations were provided to the patient at time of discharge. Patient reports he understands, accepts, and agrees to the information that has been provided. PSYCHOTROPIC MEDICATION TREATMENT INFORMED CONSENT and RECOMMENDATIONS: Review nature of condition, diagnosis, and prognosis. Review nature and purpose of psychotropic medication treatment. Review type of psychotropic medications being prescribed. Review risk and benefits of psychotropic medication treatment. Review probable length of time will need to take medications. Review risk and benefits of not undergoing psychotropic medication treatment. Review alternative treatments to psychotropic medications. Review psychotropic medications contraindications, side effects, and importance of reporting any side effects to a psychiatric provider, primary care provider, or other health animal daycare provider. Review importance of asking a psychiatric provider or primary care provider any questions or problems concerning the psychotropic medications. Review safety plan and the importance to contact [facility] or 911 , or go to the nearest emergency room, if ever a danger to yourself/others, or unable to care for yourself. Recommend upon discharge to establish routine medication management treatment with a psychiatric provider, establish routine therapy appointments, and follow-up with a primary care provider. Verify patient understands, accepts, and agrees to the information that has been provided. /[id number]
== END 2018-07-05 10:55 | disposition home or self-care (01) | DRG 885 ==
LOC: EEVIPCON 02:56 → BBEH 15:35
PROVIDERS: ADMIT Registered Nurse; ATTEND Registered Nurse
DX: F25.1 Schizoaffective disorder, depressive type (principal); K04.7 Periapical abscess without sinus; F90.9 Attention-deficit hyperactivity disorder, unspecified type; F17.200 Nicotine dependence, unspecified, uncomplicated; Z59.0 Homelessness; Z87.442 Personal history of urinary calculi; Z23 Encounter for immunization
CPT/HCPCS: 80305; G0008; G0009; G0480